=== PATIENT | female | born 1940 | race Caucasian/White ===

== ENCOUNTER 2017-01-22 11:27 | Outpatient (RCR) | payer MEDICARE, OTHER ==
--- OUTSIDE RECORDS SUMMARY | 2016-10-28 10:56 | XMS REPORT | Continuity of Care Document ---
Author Author [facility] Organization [facility] Address Unknown Phone Unavailable Care Team Providers Care International Marketing Intern Name Role Phone DANE MILLER MD PCP Insurance Providers Payer Name Policy Number Subscriber Name Relationship [employer] [id number] Fan Clark 18 Self / Same As Patient Comm Crossover Enter Ins Name [id number] Fan Clark 18 Self / Same As Patient Advance Directives Directive Response Recorded Date/Time Advance Directives No 07/31/16 12:42pm Health Care Power of Wellness Nurse No 07/31/16 12:42pm Organ Donor Yes 07/31/16 12:42pm Resuscitation Status Full Code 07/31/16 12:42pm Problems Active Problems Medical Problem Onset Date Status Bradycardia Unknown Acute Complete heart block Unknown Acute Medications Current Home Medications Medication Dose Units Route Directions Days/Qty Instructions Start Date Omeprazole 20 Mg 20 Mg Oral Daily as needed for Indigestion 10/17/10 Multivitamin 1 Each 1 Tab Oral Daily 06/04/16 Ibuprofen 200 Mg 400-600 Mg Oral Twice A Day as needed for Pain TAKES 2 -3 (200 MG) TABLETS 06/04/16 Metoprolol Succinate 25 Mg 25 Mg Oral Bedtime 07/31/16 Aspirin 81 Mg 81 Mg Oral Daily 100 08/01/16 Atorvastatin Calcium 10 Mg 10 Mg Oral Daily 30 08/01/16 Past Home Medications Medication Directions Ordered Status Ibuprofen 200 Mg Tablet, 1 - 2 Each Oral Q 4 - 6 Hrs Prn 10/22/10 Discontinued Calcium Carbonate/Vitamin D3 1 Each Tablet, 1 Each Oral Daily 08/10/12 Discontinued [Magnesium] , 500 Mg Oral Daily 06/04/16 Discontinued Diphenhydramine Hcl/Zinc Acet 28.3 Gm Cream..g., Topical Daily And Prn as needed for Itching 06/04/16 Discontinued Lisinopril 10 Mg Tablet, 10 Mg Oral Daily 06/05/16 Discontinued Cefuroxime Axetil 500 Mg Tablet, 500 Mg Oral Twice A Day 06/05/16 Discontinued Social History Social History Problem Response Recorded Date/Time Recent Foreign Travel No 07/31/2016 12:27pm Recent Infectious Disease Exposure No 07/31/2016 12:27pm Smoking Status Never a Smoker 07/31/2016 12:43pm Recent Hopitalizations No 06/04/2016 11:00am Query Response Start Date Stop Date Smoking Status Never a Smoker Hospital Discharge Instructions Patient Instructions Physician Instructions Follow Up/Plan Appointment with Dr. Nash's office in 2-[address] Chester in one to 2 weeks CARDIAC CATH DISCHARGE INSTRUCTIONS *Hold Metformin for 48 hours post heart cath. ACTIVITY * Go Home directly and rest. * Limit activity of the leg (or wrist if it was used) for 7 days including aerobics, swimming, jogging, bicycling, etc. * Restrict stair-climbing for 7 days if possible, if not, climb up with your non-cath leg, then bring together on the same step. * Avoid lifting, pushing, pulling or excessive movement of the affected extremity for 7 days. * Customary sexual activity may be resumed after 2 days-use caution not to use a position that strains or causes pain to the affected extremity. * No driving for 24 hours. * NO SMOKING. * Avoid straining for bowel movements for 7 days. * Gentle walking on level ground is allowed. * Returning to work will depend on the type of procedure and the results. Your doctor will discuss this with you. CALL YOUR DOCTOR FOR ANY OF THE FOLLOWING: *If bleeding from the puncture site occurs- Apply gentle pressure to site with clean cloth and call your doctor or EMS. * If a knot or lump forms under the skin, increases in size, or causes pain. * If bruising appears to be worsening or moving further down your leg instead of disappearing. * Temperature above 101 F. CARE OF YOUR GROIN INCISION; * Bruising or purple discoloration of the skin near the puncture site is common. * You may shower only, no bathtub bathing for 5 days. Be careful to avoid slipping as your leg may feel stiff. * If a closure device was used on your femoral artery, please see the attached guide regarding care of the device and your leg. * REMOVE the dressing from your groin the next day after your procedure in the shower. CARE OF YOUR WRIST INCISION; * Bruising or purple discoloration of the skin near the puncture site is common. * You may shower. * DO NOT submerge wrist. * Remove dressing in 24 hours. Plan of Care Discharge Date 08/01/16 10:25am Instructions/Education Provided CARDIAC CATH DISCHARGE INSTRUC Prescriptions See Medication Section Functional Status Query Response Date Recorded Patient Orientation Person Place Time Situation August 01, 2016 10:33am Allergies, Adverse Reactions, Alerts No known allergies. Immunizations No immunization records. Vital Signs Acute Vital Signs Vital Response Date/Time Temperature (Fahrenheit) 98.3 degrees F (97.6 - 99.5) 08/01/2016 10:25am Temperature (Calculated Celsius) 36.07156 degrees C (36.4 - 37.5) 08/01/2016 4:00am Temperature Source Temporal 08/01/2016 10:25am Pulse Rate (adult) 78 bpm (60 - 90) 08/01/2016 10:25am Respiratory Rate 18 bpm (12 - 24) 08/01/2016 10:25am O2 Sat by Pulse Oximetry 96 % (88 - 100) 08/01/2016 10:25am Blood Pressure 164/83 mm Hg 08/01/2016 10:25am Blood Pressure Mean 110 mm Hg 08/01/2016 8:00am Pain Numeric Pain Scale 0-No Pain 08/01/2016 10:25am Height (Feet) 5 feet 07/31/2016 12:42pm Height (Inches) 6.00 inches 07/31/2016 12:42pm Height (Calculated Centimeters) 167.936405 cm 07/31/2016 12:42pm Weight (Pounds) 177 pounds 07/31/2016 12:42pm Weight (Ounces) 0.0 oz 07/31/2016 12:42pm Weight (Calculated Grams) 03534.85 gm 07/31/2016 12:42pm Weight (Calculated Kilograms) 80.375416 kilograms 07/31/2016 12:42pm Calculated BMI 28.6 07/31/2016 12:42pm Capillary Refill Capillary Refill Less Than 3 Seconds 08/01/2016 8:00am Results Pending Laboratory Results Test Name Collection Date/Time Procedures Procedure Status Date Provider(s) Tracing only of electrocardiogram Completed 07/31/16 CHRISTI NASH MD Tracing only of electrocardiogram Completed 07/31/16 CHRISTI NASH MD Encounters Encounter Location Arrival/Admit Date Discharge/Depart Date Attending Provider Departed [facility] 07/31/16 12:05pm 08/01/16 10:25am CHRISTI NASH MD Registered Clinic [facility] 07/29/16 7:55am CHRISTI NASH MD
[~2017-01-22 11:27] MED LIST: ASPI-983 PO; ATOR10TA PO; ATOR40TA PO; CALC-758 PO; CEFU500T PO; DIPH28.33 TP; DOCU100C37 PO; FURO-125 PO; IBUP-15 PO; IBUP-30 PO; LISI10TA2 PO; LISI2.5T PO; MAGN400T6 PO; MAGNESIUM PO; METO-270 PO; METO-333 PO; MULT1TAB69 PO; OMEP-10 PO
== END 2017-01-26 | disposition home or self-care (01) ==
LOC: CR 11:27
PROVIDERS: ATTEND Internal Medicine Cardiovascular Disease
DX: Z48.812 Encounter for surgical aftercare following surgery on the circulatory system (principal); Z95.1 Presence of aortocoronary bypass graft
CPT/HCPCS: 93798

== ENCOUNTER 2017-02-28 13:29 | Outpatient (RCR) | payer MEDICARE, OTHER | END 2017-02-28 15:10 | disposition home or self-care (01) | LOC: CR 13:29 | PROVIDERS: ATTEND Internal Medicine Cardiovascular Disease | DX: Z48.812 Encounter for surgical aftercare following surgery on the circulatory system (principal); Z95.1 Presence of aortocoronary bypass graft | CPT/HCPCS: 93798 ==

== ENCOUNTER → 2017-07-30 | Outpatient (CLI) | payer MEDICARE, OTHER ==
[~2017-07-30] VITALS: Ht 167.6 cm; Wt 76.2 kg
[~2017-07-30] MED LIST changes: +CATHETER FLUSH 10 ML SYR IV PRN; +REGADENOSON 0.4 MG/5 ML SYR (LEXISCAN) IV ONE
[2017-07-30 13:23] VITALS: BP 151/73
[2017-07-30 13:28] VITALS: BP 141/62
--- NOTE | 2017-08-01 09:19 | STRESS TEST ---
DATE OF SERVICE: 07/30/2017 LEXISCAN MYOVIEW STRESS TEST REPORT Baseline heart rate is 63. Baseline blood pressure 133/72. Baseline EKG is pacemaker rhythm. In summary, patient was injected with 10.64 mCi of technetium-99 Myoview and the resting images were obtained. Then, the patient received 0.4 mg of Lexiscan followed by 30.1 mCi of technetium-99 Myoview. Throughout the test, there were no EKG changes. The resting and stress images were reviewed and compared in the short axis, horizontal long axis, and vertical long axis views. Review of the images showed breast attenuation with fixed defect at the true apex. No significant ischemia or infarction was seen. SSS is 3, SDS 1, TID value 1.08. On the gated images, the left ventricle appeared to be normal size with normal contractility, calculated ejection fraction 64%. CONCLUSION: 1. The patient tolerated Lexiscan well. 2. Baseline paced rhythm persisted throughout test. 3. Breast attenuation with typical female pattern, no significant ischemia or infarction on SPECT images. 4. Normal left ventricular size with normal contractility, calculated ejection fraction 64%. Job ID: [id number] DocumentID: [id number] Dictated Date: 07/31/2017 07:16:31 Sales Associate Key Holder Date: 07/31/2017 07:49:01 Dictated By: CHRISTI MORLEY MD
== END ==
LOC: CARD 11:10
PROVIDERS: ATTEND Physician Assistant
DX: I25.10 Atherosclerotic heart disease of native coronary artery without angina pectoris (principal); I44.2 Atrioventricular block, complete; I10 Essential (primary) hypertension; Z95.0 Presence of cardiac pacemaker
CPT/HCPCS: 78452; 93017; 93306

== ENCOUNTER 2021-01-31 13:00 | Day surgery (SDC) | payer MEDICARE, OTHER ==
[2021-01-31] VITALS (13 sets, daily range): BP systolic 121–177; BP diastolic 54–93
[~2021-01-31] VITALS: Ht 167 cm; Wt 80.0 kg
[2021-01-31 11:22] LABS: HEMOGLOBIN 12.5 g/dL (11.5-16.0); MEAN PLATELET VOLUME 9.3 fL (9.0-12.2); WHITE BLOOD COUNT 4.3 10^3/uL (4.3-11.0)
--- NOTE | 2021-01-31 11:48 | Diagnostic Imaging Report ---
INDICATION: Pacemaker generator exchange, preoperative evaluation. COMPARISON: September 19, 2016. TECHNIQUE: Single radiograph of the chest dated January 31, 2021. 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 Pacer device is present with the battery pack overlying the right chest. The cardiac silhouette is mildly enlarged. No significant pulmonary vascular congestion. The lungs are clear. No pleural effusion. No pneumothorax. No acute osseous abnormality. IMPRESSION: Mild cardiomegaly without pulmonary vascular congestion. Additional postsurgical and chronic findings as above without acute cardiopulmonary abnormality. Dictated by: Dictated on workstation # [id number]
[2021-01-31 11:51] LABS: INR 1.1 (0.8-1.4); PROTHROMBIN TIME PATIENT 14.9 SEC (12.2-14.7)
[2021-01-31 11:57] LABS: ALANINE AMINOTRANSFERASE 13 U/L (0-55); ALBUMIN 4.1 GM/DL (3.2-4.5); ALKALINE PHOSPHATASE 65 U/L (40-136); BILIRUBIN,TOTAL 0.6 MG/DL (0.1-1.0); BUN/CREATININE RATIO 13; CALCIUM 8.8 MG/DL (8.5-10.1); CARBON DIOXIDE 24 MMOL/L (21-32); CHLORIDE 95 MMOL/L (98-107); CHOLESTEROL 207 MG/DL (< 200); CREATININE SERUM 0.84 MG/DL (0.60-1.30); GFR ESTIMATED > 60; GLUCOSE 110 MG/DL (70-105); HDL CHOLESTEROL 53 MG/DL (40-60); POTASSIUM 4.2 MMOL/L (3.6-5.0); SODIUM 131 MMOL/L (135-145); TOTAL PROTEIN 7.1 GM/DL (6.4-8.2); TRIGLYCERIDES 127 MG/DL (<150); VLDL CHOLESTEROL 25 MG/DL (5-40)
[~2021-01-31 13:00] MED LIST changes: +ASPI-1238 PO; -ASPI-983 PO; +BACITRACIN INJECTION 50,000 UNIT, SODIUM CHLORIDE 0.9% IRRIGATIO 500 ML IR ONE; +CARV12.52 PO; -CATHETER FLUSH 10 ML SYR IV PRN; +HEParin (CATH LAB) 1,000 ML IV ONE; +LIDOCAINE 1% INJ 20 ML 20 ML VIAL ONE; -LISI10TA2 PO; +LISI10TA25 PO; +LOSA50TA63 PO; +LOVA40TA2 PO; -MAGN400T6 PO; +MAGN400T8 PO; -METO-270 PO; +MTP25TSR PO; +MULT-567 PO; -MULT1TAB69 PO; +NS IV 1000 ML 1,000 ML ONE; -REGADENOSON 0.4 MG/5 ML SYR (LEXISCAN) IV ONE; +RIVA20TA PO; +ceFAZolin INJECTION 1,000 MG ONE
[2021-01-31] MEDS ORDERED: MIDAZOLAM 5 MG/5 ML (VERSED) VIAL ONE (13:42)
[2021-01-31] MEDS ORDERED: fentaNYL INJ 100 MCG/2 ML AMP ONE ×2 (13:42→14:35)
--- NOTE | 2021-01-31 15:27 | Packmaker Change ---
Pacemaker Change Physician (s)/Music Autographer (s) Physician CHRISTI MORLEY MD Pre-Procedure Diagnosis Pre-Procedure Diagnosis: BASAL CELL CARCINOMA LIP AND RIGHT ARM Post-Procedure Note Procedure Start Date: Jan 31, 2021 Name of Procedure: Pacemaker generator replacement Insertion of new atrial lead Findings/Procedure Note Patient had dual-chamber pacemaker, had poor capture with her atrial lead, reached LIZA and she was scheduled for pacemaker generator replacement and possible replacement of the atrial lead. After explaining the procedure to the patient all pros and cons were explained all questions were answered patient was placed on the cardiac catheterization laboratory, local anesthesia applied, conscious sedation achieved, skin incision was made and the device was retrieved, the atrial lead was tested and it has a very high threshold over 6 mV. Decision was made to recap that lead and insert a new atrial lead. New atrial Medtronic lead was inserted after accessing the right subclavian vein with modified Seldinger technique. Sheath was placed, the new lead was placed good sensing and capture activity was detected. Sheath was removed and the new lead was sutured. Then the new atrial lead and the old ventricular lead were attached to a new Medtronic device, tested with good sensing and capture activity, the device and the leads were placed in the pocket and underneath them the old atrial lead that was capped was placed. No complication noted, the pocket was closed on multiple layers. Testing results, no device Medtronic ANJU DR MRI serial [id number] Atrial lead is in active at this point is [id number] New atrial lead is Medtronic lead with serial number [id number] Ventricular lead [id number] Testing Atrial lead threshold 0.4 ms at 0.75 V, impedance 551, P wave 1.0 Ventricular lead impedance 741, pacing threshold 0.75 at 0.4 Conclusion Successful extraction and replacement of pacemaker generator with no complication Atrial lead was malfunctioning, successful capping the lead and placement of new atrial lead Anesthesia Type: Conscious Sedation Estimated blood loss (mL): 10 ml Contrast Amount: 0 ml Post-Procedure Diagnosis Post-operative diagnosis: Sinus node dysfunction Severe bradycardia Paroxysmal atrial fibrillation Hypertension CHRISTI MORLEY MD Jan 31, 2021 15:27
[2021-01-31] MEDS ORDERED: PATIENT MAY USE OWN MEDS, ALL PO SCH (15:30)
[2021-01-31] MEDS ORDERED: NS IV 1000 ML 1,000 ML IV SCH (15:30)
[2021-01-31] MEDS ORDERED: CEFU500T63 PO (16:11)
[2021-01-31] MEDS: NS IV 1000 ML 1,000 ML IV SCH ×2 (16:11→21:56)
--- NOTE | 2021-01-31 16:12 | Discharge Inst-Post CATH ---
Discharge Inst-CATH/EP Problems Reviewed?: Yes Post Cardiac Cath/EP D/C Inst Follow Up/Plan Appointment with Dr. Nash's office in 1 to 2 weeks <b>CARDIAC CATH/EP PROCEDURE DISCHARGE INSTRUCTIONS</b> ACTIVITY * Go Home directly and rest. * Limit activity of the leg (or wrist if it was used) for 7 days including aer obics, swimming, jogging, bicycling, etc. * Restrict stair-climbing for 7 days if possible, if not, climb up with your non-cath leg, then bring together on the same step. * Avoid lifting, pushing, pulling or excessive movement of the affected extremi ty for 7 days. * Customary sexual activity may be resumed after 2 days-use caution not to use a position that strains or causes pain to the affected extremity. * No driving for 24 hours. * NO SMOKING. * Avoid straining for bowel movements for 7 days. * Gentle walking on level ground is allowed. * Returning to work will depend on the type of procedure and the results. Your doctor will discuss this with you. CALL YOUR DOCTOR FOR ANY OF THE FOLLOWING: *If bleeding from the puncture site occurs- Apply gentle pressure to site with clean cloth and call your doctor or EMS. * If a knot or lump forms under the skin, increases in size, or causes pain. * If bruising appears to be worsening or moving further down your leg instead of disappearing. * Temperature above 101 F. CARE OF YOUR GROIN INCISION; * Bruising or purple discoloration of the skin near the puncture site is common. * You may shower only, no bathtub bathing for 5 days. Be careful to avoid slipping as your leg may feel stiff. * If a closure device was used on your femoral artery, please see the attached guide regarding care of the device and your leg. * Leave dressing on FOR 24 hours. CARE OF YOUR WRIST INCISION; * Bruising or purple discoloration of the skin near the puncture site is common. * You may shower. * DO NOT submerge wrist. * Leave dressing on FOR 24 hours. CHRISTI NASH MD Jan 31, 2021 16:12
--- NOTE | 2021-01-31 17:22 | Diagnostic Imaging Report ---
INDICATION: Arrhythmia. EXAMINATION: Portable chest at 4:46 p.m. FINDINGS: There is a dual-chamber pacemaker. There are postop changes from a median sternotomy. Heart size and pulmonary vascularity are normal. There is some patchy infiltrate or atelectasis in the left lower lung in the lingular region. There is no effusion or pneumothorax. IMPRESSION: Patchy infiltrate/atelectasis in the left lower lung. Dictated by: Dictated on workstation # [id number]
[2021-01-31] MEDS: ceFAZolin INJECTION 1,000 MG in WATER (STERILE) FOR INJECTION 10 ML IV SCH (19:44)
[2021-01-31] MEDS: DOCUSATE SODIUM 100 MG (COLACE) CAP PO SCH (21:55)
[2021-01-31] MEDS: CARVEDILOL 12.5 MG (COREG) TABLET PO SCH (23:17)
[2021-02-01] VITALS (8 sets, daily range): BP systolic 141–163; BP diastolic 55–117
[2021-02-01] MEDS: ceFAZolin INJECTION 1,000 MG in WATER (STERILE) FOR INJECTION 10 ML IV SCH (05:55)
[2021-02-01] MEDS: NS IV 1000 ML 1,000 ML IV SCH (07:11)
--- NOTE | 2021-02-01 07:58 | Cardiology Progress Note ---
Subjective Date Seen by Provider: Feb 01, 2021 Time Seen by Provider: 07:55 Subjective/Events-last exam Patient is in bed, no new complaint, site is healing well Review of Systems General: No Chills, No Night Sweats, No Fatigue, No Malaise, No Appetite, No Other HEENT: No Head Aches, No Visual Changes, No Eye Pain, No Ear Pain, No Dysphasia, No Sinus Congestion, No Post Nasal Drip, No Sore Throat, No Other Pulmonary: No Dyspnea, No Cough, No Pleuritic Chest Pain, No Other Cardiovascular: No: Chest Pain, Palpitations, Orthopnea, Paroxysmal Noc. Dyspnea, Edema, Lt Headedness, Other Objective-Cardiology Exam Last Set of Vital Signs Vital Signs 01/31/21 02/01/21 02/01/21 19:15 06:00 07:00 Temp 36.3 Pulse 60 Resp 11 B/P (MAP) 163/79 (107) Pulse Ox 96 O2 Delivery Room Air Capillary Refill : I&O Intake and Output 02/01/21 00:00 Intake Total 590 ml Balance 590 ml Intake Oral 590 ml # Voids 4 General: Alert, Oriented X3, Cooperative HEENT: Atraumatic, PERRLA Neck: Supple, No JVD, No Thyromegaly Lungs: Clear to Auscultation, Normal Air Movement Heart: Regular Rate, Normal S1, Normal S2, No Murmurs Abdomen: Normal Bowel Sounds, Soft, No Tenderness, No Hepatosplenomegaly, No Masses Extremities: No Clubbing, No Cyanosis, No Edema, Normal Pulses, No Tenderness/Swelling Skin: No Rashes, No Breakdown, No Significant Lesion Neuro: Normal Gait, Normal Speech, Strength at 5/5 X4 Ext, Normal Tone, Sensation Intact Psych/Mental Status: Mental Status NL, Mood NL Results Lab Laboratory Tests 01/31/21 11:12 A/P-Cardiology Admission Diagnosis SSS PPM HTN HLP Assessment/Plan SSS, history of PPM with malfunctioning atrial lead, status post implantation of a new generator and a new atrial lead. the old lead was capped and kept in the pocket, no complication HTN, continue home meds and monitor HLP, monitor lipids CHRISTI MORLEY MD Feb 01, 2021 07:58
[2021-02-01] MEDS ORDERED: RIVAROXABAN 20 MG TABLET (XARELTO) PO SCH (08:00)
[2021-02-01] MEDS ORDERED: SIMvastatin 20 MG (ZOCOR) TAB PO SCH (09:00)
[2021-02-01] MEDS ORDERED: MAGNESIUM OXIDE (MAG-OX)400 MG TAB PO SCH (09:00)
[2021-02-01] MEDS ORDERED: NON-FORMULARY MEDICATION 1 EA EA (Lovastatin 40 MG) PO SCH (09:00)
[2021-02-01] MEDS ORDERED: LOSARTAN 50 MG (COZAAR) TAB PO SCH (09:00)
[2021-02-01] MEDS: CARVEDILOL 12.5 MG (COREG) TABLET PO SCH (09:41)
[2021-02-01] MEDS: DOCUSATE SODIUM 100 MG (COLACE) CAP PO SCH (09:41)
== END 2021-02-01 09:38 | disposition home or self-care (01) ==
LOC: CATH 13:00 → CSD 16:39 → CATH 02-01 09:38
PROVIDERS: ATTEND Internal Medicine Cardiovascular Disease
DX: I49.5 Sick sinus syndrome (principal); C44.01 Basal cell carcinoma of skin of lip; C44.612 Basal cell carcinoma of skin of right upper limb, including shoulder; I48.0 Paroxysmal atrial fibrillation; I10 Essential (primary) hypertension; E78.2 Mixed hyperlipidemia; I25.10 Atherosclerotic heart disease of native coronary artery without angina pectoris; I34.0 Nonrheumatic mitral (valve) insufficiency; M19.90 Unspecified osteoarthritis, unspecified site; I65.23 Occlusion and stenosis of bilateral carotid arteries; I44.2 Atrioventricular block, complete; E66.9 Obesity, unspecified; Z68.28 Body mass index [BMI] 28.0-28.9, adult; Z79.899 Other long term (current) drug therapy; Z88.8 Allergy status to other drugs, medicaments and biological substances; Z90.710 Acquired absence of both cervix and uterus; Z83.3 Family history of diabetes mellitus
CPT/HCPCS: 33206; 33228; 36415; 71045; 80053; 80061; 85027; 85610; 85730; 87081

== ENCOUNTER → 2021-08-09 | Outpatient (CLI) | payer MEDICARE, OTHER ==
[~2021-08-09] MED LIST changes: -BACITRACIN INJECTION 50,000 UNIT, SODIUM CHLORIDE 0.9% IRRIGATIO 500 ML IR ONE; +CEFU500T63 PO; -HEParin (CATH LAB) 1,000 ML IV ONE; -LIDOCAINE 1% INJ 20 ML 20 ML VIAL ONE; -LISI2.5T PO; +LISI2.5T13 PO; -MAGN400T8 PO; +MGX400T PO; -NS IV 1000 ML 1,000 ML ONE; -ceFAZolin INJECTION 1,000 MG ONE
== END ==
LOC: CARD 10:00
PROVIDERS: ATTEND Physician Assistant
DX: I11.9 Hypertensive heart disease without heart failure (principal); I08.0 Rheumatic disorders of both mitral and aortic valves
CPT/HCPCS: 93306

== ENCOUNTER → 2022-02-20 | Outpatient (CLI) | payer MEDICARE, OTHER | LOC: CARD 12:45 | PROVIDERS: ATTEND Internal Medicine Cardiovascular Disease | DX: I08.0 Rheumatic disorders of both mitral and aortic valves (principal); I11.9 Hypertensive heart disease without heart failure | CPT/HCPCS: 93306 ==